=== PATIENT | male | born 1980 | race Caucasian/White ===

== ENCOUNTER → 2017-02-19 | Outpatient (CLI) | payer BC ==
--- NOTE | 2017-02-19 10:00 | DIAGNOSTIC IMAGING REPORT ---
LEFT ANKLE 3 VIEWS HISTORY: LEFT ANKLE PAIN COMPARISON: None. FINDINGS: There is no fracture or dislocation. Soft tissues are unremarkable. No radiopaque foreign bodies. IMPRESSION: No fractures. Electronically signed by: Jacoby Salcedo M.D. 02/19/2017 9:58 AM Dictated Date/Time: 02/19/2017 9:57 AM
== END | disposition home or self-care (01) ==
LOC: C.RAD1850 09:43
PROVIDERS: ATTEND Family Medicine
DX: M25.572 Pain in left ankle and joints of left foot (principal)

== ENCOUNTER → 2017-09-11 | Outpatient (CLI) | payer OTHER ==
--- NOTE | 2017-09-11 14:37 | DIAGNOSTIC IMAGING REPORT ---
R FOOT MIN 3 VIEWS CLINICAL HISTORY: BILATERAL FOOT PAIN pain COMPARISON: None. DISCUSSION: Incompletely healed fracture midshaft fifth metatarsal. All remaining osseous structures are unremarkable. Evidence for prior joanne placement within the distal tibia. There is no evidence for soft tissue swelling. IMPRESSION: Incompletely healed fracture midshaft fifth metatarsal. Postoperative changes distal tibia. The above report was generated using voice recognition software. It may contain grammatical, syntax or spelling errors. Electronically signed by: Massimo Marrufo M.D. 09/11/2017 2:36 PM Dictated Date/Time: 09/11/2017 2:35 PM
--- NOTE | 2017-09-11 14:41 | DIAGNOSTIC IMAGING REPORT ---
L FOOT MIN 3 VIEWS CLINICAL HISTORY: BILATERAL FOOT PAIN pain. Edema. COMPARISON: None. DISCUSSION: Mild soft tissue edema. No acute bony abnormality. Cortical margins are intact. IMPRESSION: Mild soft tissue edema. No acute bony abnormality. Slight cortical thickening base fifth metatarsal most likely on the basis of repetitive stress versus old healed posttraumatic change.. The above report was generated using voice recognition software. It may contain grammatical, syntax or spelling errors. Electronically signed by: Massimo Marrufo M.D. 09/11/2017 2:39 PM Dictated Date/Time: 09/11/2017 2:38 PM
== END | disposition home or self-care (01) ==
LOC: C.RDSM 14:23
PROVIDERS: ATTEND Family Medicine
DX: S92.351G Displaced fracture of fifth metatarsal bone, right foot, subsequent encounter for fracture with delayed healing (principal); X58.XXXD Exposure to other specified factors, subsequent encounter; Z98.890 Other specified postprocedural states; M85.872 Other specified disorders of bone density and structure, left ankle and foot

== ENCOUNTER → 2017-10-12 | Outpatient (CLI) | payer OTHER ==
--- NOTE | 2017-10-12 14:15 | DIAGNOSTIC IMAGING REPORT ---
R FOOT MIN 3 VIEWS ROUTINE CLINICAL HISTORY: S92.354S, Q66.7, M79.671 stress fracture COMPARISON: 09/11/2017 DISCUSSION: Fracture fifth metatarsal is again noted. Alignment is unchanged. Slight increase in bony bridging compared to the prior study although a considerable component of the fracture is incompletely healed. No new or interval finding. IMPRESSION: Minimal interval healing of the transverse fracture midshaft fifth metatarsal compared to the prior study. The above report was generated using voice recognition software. It may contain grammatical, syntax or spelling errors. Electronically signed by: Massimo Marrufo M.D. 10/12/2017 2:14 PM Dictated Date/Time: 10/12/2017 2:12 PM
== END | disposition home or self-care (01) ==
LOC: C.RAD1850 14:01
PROVIDERS: ATTEND Podiatrist
DX: S92.354D Nondisplaced fracture of fifth metatarsal bone, right foot, subsequent encounter for fracture with routine healing (principal); X58.XXXD Exposure to other specified factors, subsequent encounter; Q66.7 Congenital pes cavus